=== PATIENT | female | born 2000 | race Caucasian/White ===

== ENCOUNTER 2024-07-17 10:53 | Inpatient (IN) | payer OTHER ==
[~2024-07-17 10:53] MED LIST: Bupivacaine 0.25% HCL 30 ML VIAL ONE; Bupivacaine HCl 0.5%/Epinephrine 1:200,000/PF 30 ml Vial ONE
[2024-07-17 11:16] VITALS: BMI 33.7
[2024-07-17] MEDS ORDERED: hydrALAZINE 20 MG/ML VIAL SLOW IVP PRN ×4 (12:00→12:51)
[2024-07-17 12:37] LABS: Creatinine, Urine 178.71 mg/dL (47-110)
[2024-07-17 12:44] LABS: Bilirubin Neg (Negative); Blood, Urine Negative (Negative); Clarity Slightly Cloudy (Clear); Glucose, Urine (Dipstick) Normal (Negative); Ketone, Urine Negative (Negative); Leukocyte 25 (Negative); Nitrite Negative (Negative); Protein, Urine (Dipstick) 30 mg/dl (Neg-Trace); Specific Gravity, Urine 1.005 (1.005-1.030)
[2024-07-17] MEDS ORDERED: Docusate 100 MG CAP PO PRN (12:51)
[2024-07-17] MEDS ORDERED: Misoprostol 200 MCG TAB PR PRN (12:51)
[2024-07-17] MEDS ORDERED: Ondansetron PF 4 MG/2 ML Vial IVP PRN (12:51)
[2024-07-17] MEDS ORDERED: Tranexamic Acid 1,000 MG/10 ML VIAL IVP PRN (12:51)
[2024-07-17] MEDS ORDERED: Calcium Gluc 4.6 MEQ/10 ML (100 MG/ML) SLOW IVP PRN (12:51)
[2024-07-17] MEDS ORDERED: Labetalol HCl 100 MG/20 ML VIAL SLOW IVP PRN ×2 (12:51)
[2024-07-17] MEDS ORDERED: Lorazepam 2 MG/ML VIAL SLOW IVP PRN (12:51)
[2024-07-17] MEDS ORDERED: Promethazine HCl 25 MG/ML VIAL IM PRN (12:51)
[2024-07-17 12:56] LABS: Bacteria/HPF 1+ HPF (None Seen); CAUTI Indications for Culture Pregnancy; RBC/HPF 0-3 HPF (0-3); WBC/HPF 0-3 HPF (0-3)
[2024-07-17 12:57] LABS: Urine Culture Reflex Yes Yes
[2024-07-17] MEDS ORDERED: Lidocaine 1% (PF) 30 ML VIAL SC PRN (12:59)
[2024-07-17 13:00] LABS: ALT (SGPT) 16 U/L (8-55); AST (SGOT) 25 U/L (5-34); Albumin 2.6 g/dL (3.5-5.0); Alkaline Phosphatase 146 U/L (40-110); Anion Gap 13 mmol/L (10-20); BUN (Urea Nitrogen) 13 mg/dL (7.0-18.7); Bilirubin, Total 0.3 mg/dL (0.2-1.2); Calc. Creatinine Clearance 209 mL/min (70-130); Calcium 9.3 mg/dL (7.8-10.44); Carbon Dioxide 20 mmol/L (22-29); Chloride 110 mmol/L (98-107); Estimated GFR 130; Globulin 2.8 g/dL (2.4-3.5); Glucose 74 mg/dL (70-105); Potassium 3.9 mmol/L (3.5-5.1); Protein, Total 5.4 g/dL (6.0-8.3); Sodium 139 mmol/L (136-145)
[2024-07-17 13:18] LABS: Amphetamine Not Detected (NotDetected); Barbiturates Screen Not Detected (NotDetected); Benzodiazepine Screen Not Detected (NotDetected); Cocaine Metabolite Screen Not Detected (NotDetected); Methadone Not Detected (NotDetected); Methamphetamine Detected (NotDetected); Opiate Screen Not Detected (NotDetected); Oxycodone Screen Not Detected (NotDetected); Phencyclidine (PCP) Not Detected (NotDetected); THC/Cannabinoid Screen Not Detected (NotDetected); Tricyclic Screen Not Detected (NotDetected)
[2024-07-17 13:23] LABS: #Basophils 0.01 10x3/uL (0.0-0.2); #Eosinophils 0.05 10x3/uL (0.0-0.5); #Monocytes 0.75 10x3/uL (0.0-1.1); #Neutrophils 8.66 10x3/uL (1.5-8.4); %Basophils 0.1 % (0.0-2.0); %Eosinophils 0.5 % (0.0-6.0); %Lymphocytes 12.8 % (18.0-47.0); %Monocytes 6.9 % (0.0-10.0); %Neutrophils 79.4 % (40.0-75.0); Hematocrit 36.1 % (34.9-44.5); Hemoglobin 12.2 g/dL (12.0-15.5); Mean Corpuscular HGB CONC 33.8 g/dL (32.0-36.0); Mean Corpuscular Volume 94.8 fL (81.6-98.3); Mean Platelet Volume 12.3 fL (7.4-10.4); Platelet Count 160 10x3/uL (150-450); RBC Distribution Width 13.1 % (11.5-14.5); Red Blood Cell (RBC) Count 3.81 10x6/uL (3.90-5.03); White Blood Cell (WBC) Count 10.9 10x3/uL (3.5-10.5)
[2024-07-17 13:32] LABS: Syphilis Antibody Nonreactive (Nonreactive); Syphilis Antibody Index 0.03 S/CO (<1.00 Non-Reactive)
[2024-07-17 13:33] LABS: HBsAg Index 0.21 S/CO (0-0.99); Hep B Surf Ag - L&D Non-Reactive S/CO (NonReactive)
[2024-07-17] MEDS: Vancomycin 1 GM in Sodium Chloride 0.9% 250 ML 250 ML IVPB SCH (13:41)
[2024-07-17] MEDS: Lactated Ringer's 1,000 ML IV SCH (13:41)
[2024-07-17] MEDS: Misoprostol 100 MCG TAB VAG SCH (13:46)
[2024-07-18] MEDS: Acetaminophen 500 MG TAB PO PRN (01:08)
[2024-07-18] MEDS: Zolpidem Tartrate 5 MG TAB PO PRN (01:08)
[2024-07-18] MEDS: fentaNYL 50 mcg/mL 1 mL Vial SLOW IVP PRN (02:17)
[2024-07-18] MEDS: fentaNYL/Ropivacaine Epidural 100 ML ONE (06:56)
[2024-07-18] MEDS ORDERED: Moisturizing Cream (Eucerin) 113 GM JAR TOP PRN (07:02)
[2024-07-18] MEDS ORDERED: diphenhydrAMINE 50 MG/ML VIAL IVP PRN (07:02)
[2024-07-18] MEDS ORDERED: Promethazine HCl 25 MG/ML VIAL IM PRN (07:02)
[2024-07-18] MEDS ORDERED: Naloxone HCl 0.4 mg/ml Vial IVP PRN ×2 (07:02)
[2024-07-18] MEDS ORDERED: ePHEDrine Sulfate 50 MG/10 ML VIAL SLOW IVP PRN (07:02)
[2024-07-18] MEDS ORDERED: Acetaminophen 325 MG TAB PO PRN (07:02)
[2024-07-18] MEDS ORDERED: Lactated Ringer's 500 ML IV PRN (07:02)
[2024-07-18] MEDS ORDERED: Ondansetron PF 4 MG/2 ML Vial IVP PRN ×2 (07:02→14:17)
[2024-07-18] MEDS ORDERED: Communication Order-Pharmacy FS SCH (07:15)
[2024-07-18] MEDS ORDERED: fentaNYL 2 mcg/Ropivacaine 0.2% Epidural 100 ML CADD EPIDURAL SCH (07:15)
[2024-07-18] MEDS: Oxytocin 30 units/NS 500 ML 500 ML IV SCH ×2 (08:15→13:57)
[2024-07-18] MEDS ORDERED: HYDROcodone/Acetaminophen 5/325 mg Tablet PO PRN (14:17)
[2024-07-18] MEDS ORDERED: Boostrix 0.5 ML (Tdap) VIAL (>/=7 yrs of age) IM ONE (14:17)
[2024-07-18] MEDS ORDERED: Preparation H Ointment 28 GM TUBE PR PRN (14:17)
[2024-07-18] MEDS ORDERED: Methylergonovine 0.2 MG/ML VIAL IM PRN (14:17)
[2024-07-18] MEDS ORDERED: diphenhydrAMINE 25 MG CAP PO PRN (14:17)
[2024-07-18] MEDS ORDERED: hydrALAZINE 20 MG/ML VIAL SLOW IVP PRN (14:17)
[2024-07-18] MEDS ORDERED: Milk Of Magnesia 30 ML UDCUP PO PRN (14:17)
[2024-07-18] MEDS ORDERED: Bisacodyl 10 MG SUPP PR PRN (14:17)
[2024-07-18] MEDS ORDERED: Benzocaine-Menthol 82.5 ML CAN TOP PRN (14:17)
[2024-07-18] MEDS ORDERED: Zolpidem Tartrate 5 MG TAB PO PRN (14:17)
[2024-07-18] MEDS: Diphenoxylate HCl/Atropine Tablet PO PRN (15:46)
[2024-07-18] MEDS: Carboprost 250 MCG/ML AMP IM PRN (15:47)
[2024-07-18] MEDS: Ibuprofen 800 MG TAB PO SCH ×2 (16:44→19:23)
[2024-07-18] MEDS: Ferrous Sulfate 325 MG TAB PO SCH (19:24)
[2024-07-18] MEDS: Vancomycin 1 GM VIAL ONE (19:26)
[2024-07-19 04:17] LABS: Hematocrit 29.8 % (34.9-44.5); Hemoglobin 9.8 g/dL (12.0-15.5); Mean Corpuscular HGB CONC 32.9 g/dL (32.0-36.0); Mean Corpuscular Hemoglobin 31.3 pg (27.0-33.0); Mean Corpuscular Volume 95.2 fL (81.6-98.3); Mean Platelet Volume 12.4 fL (7.4-10.4); Platelet Count 139 10x3/uL (150-450); RBC Distribution Width 13.4 % (11.5-14.5); Red Blood Cell (RBC) Count 3.13 10x6/uL (3.90-5.03); White Blood Cell (WBC) Count 11.5 10x3/uL (3.5-10.5)
[2024-07-19] MEDS: Prenatal Vitamin 1 TAB PO SCH (08:55)
[2024-07-20 12:06] VITALS: TEMP 98.1
[2024-07-20] MEDS: NIFEdipine XL 30 MG ER.TAB PO SCH (15:11)
[2024-07-20 15:46] VITALS: BP 146/96
== END 2024-07-20 17:45 | disposition home or self-care (01) | DRG 807 ==
LOC: CSHLD/OP 10:53 → CSHLD 12:55 → CSHPP 07-18 17:07
PROVIDERS: ADMIT Obstetrics & Gynecology; ATTEND Obstetrics & Gynecology
PROC: 10E0XZZ Delivery of Products of Conception, External Approach (ICD-10-PCS; principal; 2024-07-18)
PROC: 0HQ9XZZ Repair Perineum Skin, External Approach (ICD-10-PCS; 2024-07-18)
DX: O13.4 Gestational [pregnancy-induced] hypertension without significant proteinuria, complicating childbirth (principal); Z37.0 Single live birth; O99.344 Other mental disorders complicating childbirth; O99.324 Drug use complicating childbirth; Z3A.39 39 weeks gestation of pregnancy; Z88.0 Allergy status to penicillin; F32.9 Major depressive disorder, single episode, unspecified; O99.824 Streptococcus B carrier state complicating childbirth; O77.0 Labor and delivery complicated by meconium in amniotic fluid; F15.90 Other stimulant use, unspecified, uncomplicated
CPT/HCPCS: 36415; 76819; 80053; 80306; 81001; 82570; 84156; 85025; 85027; 86780; 86850; 86900; 86901; 87086; 87340; J0665; J2590; J3010; J3370; J3490; J7050; J7120